=== PATIENT | female | born 1975 | race Caucasian/White ===

== ENCOUNTER 2019-08-26 12:57 | Outpatient (CLI) | payer BC ==
--- NOTE | 2019-08-26 14:37 | MMO ---
Bilateral MAMMO Bilat Diag [facility]. CLINICAL HISTORY: Patient is 43 years old and is seen for additional evaluation requested at current screening. The patient has the following family history of breast cancer: aunt. The patient has no personal history of cancer. VIEWS: The views performed were: bilateral craniocaudal spot compression with tomosynthesis; bilateral mediolateral oblique spot compression with tomosynthesis; and bilateral mediolateral with tomosynthesis. FILMS COMPARED: The present examination has been compared to prior imaging studies performed at [facility] on 08/19/2019, and at [facility] on 08/26/2019. This study has been interpreted with the assistance of computer-aided detection. MAMMOGRAM FINDINGS: There are scattered fibroglandular densities. Finding 1: Right breast nodule is consistent with lymph node on addl images and US. Finding 2: Focal asymmetry in the left outer breast persists on addl images on CC view but not on ML or compressed MLO view and is not seen on US. IMPRESSION: FINDING 1: FINDING IN THE RIGHT BREAST IS BENIGN. FINDING 2: FINDING IN THE LEFT BREAST IS PROBABLY BENIGN. FOLLOW-UP IN 6 MONTHS IS RECOMMENDED. THE RESULTS OF THIS EXAM WERE SENT TO THE PATIENT. ACR BI-RADS Category 3 - Probably benign finding - short interval follow-up suggested. [facility] will notify the patient of the need for additional imaging services. MAMMOGRAPHY NOTE: 1. A negative mammogram report should not delay a biopsy if a dominant of clinically suspicious mass is present. 2. Approximately 10% to 15% of breast cancers are not detected by mammography. 3. Adenosis and dense breasts may obscure an underlying neoplasm. Reported by: REGULO GRAHAM MD Electonically Signed: [id number]
--- NOTE | 2019-08-26 14:46 | ULT ---
BILATERAL BREAST ULTRASOUND: HISTORY: Abnormal mammogram of 08/19/2019 and today. FINDINGS: The 1 cm hypoechoic nodule with echogenic hilum with flow at the 10 o'clock position of the right sol ast corresponds to the finding on the mammogram and is consistent with a lymph node. Sonographic evaluation of the left upper outer breast demonstrates no abnormality in the region of co ncern on the mammogram. IMPRESSION: 1. Right breast BI-RADS category 2 - benign findings. 2. Left breast probably benign finding on the mammogram. A follow-up diagnostic mammogram should be p erformed in six months. POS: OFF
== END 2019-08-26 12:58 | disposition home or self-care (01) ==
LOC: BICMAMMO 12:57
PROVIDERS: ATTEND Student in an Organized Health Care Education/Training Program
DX: N63.20 Unspecified lump in the left breast, unspecified quadrant (principal)
CPT/HCPCS: 77066; G0279